=== PATIENT | female | born 1950 | race Caucasian/White ===

== ENCOUNTER 2018-07-09 13:20 | Inpatient (IN) | payer MEDICARE, OTHER ==
[~2018-07-09] VITALS: Ht 152.4 cm; Wt 52.4 kg
--- NOTE | ~2018-07-09 | HP ---
PATIENT: LETTY ROSALES MEDICAL RECORD: [id number] ACCOUNT: [id number] LOCATION:[address] : 46 ADMISSION DATE: 07/09/18 PCP: No PCP HISTORY AND PHYSICAL EXAMINATION HISTORY OF PRESENT ILLNESS: Ms. Rosales is a 68-year-old white female that is transferred from [facility] with worsening renal failure. She has a history of similar problem back in April where she developed acute renal failure. She was hospitalized at [facility] at that time and saw a production clerk and had a workup. She was sent home on some blood pressure medicines, but has not taken any. She states she does like to take medicine. She is a smoker and smokes a pack or more a day. She denies alcohol consumption. She recently had some upper respiratory symptoms and has been taking some Aleve and ibuprofen, which may be contributing. She has also had some nausea, vomiting and diarrhea. Her creatinine has been around 5. She was hospitalized in [place] 2 days ago and has failed to improve. She is transferred here for neurology services. PAST MEDICAL HISTORY: Significant for MS that was diagnosed in the mid s. It has been years since she has seen a production clerk. She has had a knee injury which required surgery. She has also had a foot fracture last year from a fall. PAST SURGICAL HISTORY: Includes knee surgery. ALLERGIES: INCLUDE HYDRALAZINE, WHICH CAUSES SPASMS OF HER BACK MUSCLES. MEDICATIONS: Home medications include Tylenol No. 4 and Provigil. FAMILY HISTORY: Mom at age 58 of an aneurysm. Dad at 82 of old age. SOCIAL HISTORY: She smokes a pack per day, does not drink. REVIEW OF SYSTEMS: She has had some recent upper respiratory symptoms. No fever. She has had nausea and vomiting and some diarrhea, some abdominal cramping associated with this. She denies any blood in her stools. She denies any difficulty with urinating. PHYSICAL EXAMINATION: GENERAL: She is alert and pleasant. She is in no distress at this time. HEENT: Head is normocephalic, sclerae nonicteric. NECK: Soft and supple. HEART: Regular with diminished breath sounds and a slight wheeze. ABDOMEN: Soft, no rebound, no guarding, no mass. EXTREMITIES: Lower extremities reveal no edema. NEUROLOGIC: Without any gross focal deficits. IMPRESSION: 1. Acute on apparently chronic renal failure. 2. Hypertension with noncompliance. 3. History of MS. 4. Tobacco use with probable chronic obstructive pulmonary disease. PLAN: Admit, IV fluids, check labs, get a renal ultrasound in a.m. Consult nephrology. Reviewed records from [facility], hospitalization back earlier in the year, records from [place] are pretty sparse, as all we have are copy of labs and a chest x-ray disc and an arterial Doppler. No H&P or discharge HISTORY AND PHYSICAL [id number] LETTY ROSALES summary is included with her records from [place]. TRANSINT:[id number] Voice Confirmation ID: [id number] DOCUMENT ID: [id number] KATIE RYAN DO at 2117 CC: [id number] DICTATION DATE: 07/09/18 1839 BROADCAST OPERATIONS TECHNICIAN: 07/09/182010 ADM IN [facility] [address] [place] [address]
[2018-07-09 21:12] VITALS: BP 158/68
[2018-07-10 00:20] VITALS: BP 157/76
[2018-07-10 04:56] LABS: BASOPHILS 0.1 % (0-2); EOSINOPHILS 0.9 % (0-7); HEMATOCRIT 38.4 % (36.0-48.0); HEMOGLOBIN 12.2 g/dL (12-16); IMMATURE GRANULOCYTES 1.5 % (0-5); MCH 29.5 pg (26.0-34.0); MCHC 31.8 g/dL (31.0-37.0); MCV 92.8 fL (80.0-100.0); MEAN PLATELET VOLUME 10.9 fL (7.4-10.4); MONOCYTES 6.7 % (2-11); NEUTROPHILS 73.8 % (40-80); PLATELET COUNT 201 10x3/uL (130-400); RBC 4.14 10x6/uL (4.00-5.40); WBC 7.9 10x3/uL (4.8-10.8)
[2018-07-10 05:44] VITALS: BP 149/65
[2018-07-10 06:07] LABS: ERYTHROCYTE SEDIMENTATION RATE 30 mm/hr (0-30)
[2018-07-10 07:09] LABS: ALBUMIN 2.6 g/dL (3.4-5.0); ANION GAP 20.4 mmol/L (8-16); BILIRUBIN - TOTAL 0.38 mg/dL (0.2-1.3); C-REACTIVE PROTEIN 2.3 mg/dL (0.0-0.9); CALCIUM 8.2 mg/dL (8.5-10.1); CARBON DIOXIDE 15.2 mmol/L (21.0-32.0); CREATININE - SERUM 6.1 mg/dL (0.6-1.3); MAGNESIUM - SERUM 1.9 mg/dL (1.8-2.4); PHOSPHOROUS 5.5 mg/dL (2.5-4.9); POTASSIUM - SERUM 4.6 mmol/L (3.5-5.1); PROTEIN - SERUM 6.8 g/dL (6.4-8.2); THYROID STIMULATING HORMONE 1.76 uIU/mL (0.36-3.74)
[2018-07-10 13:33] VITALS: BP 184/81
[2018-07-10 14:52] LABS: APPEARANCE CLOUDY (CLEAR); BILIRUBIN NEGATIVE (NEGATIVE); COLOR STRAW (YELLOW); GLUCOSE NEGATIVE (NEGATIVE); KETONE NEGATIVE (NEGATIVE); NITRITE NEGATIVE (NEGATIVE); PROTEIN TRACE mg/dL (NEGATIVE); UROBILINOGEN NORMAL (NORMAL)
[2018-07-10 14:54] LABS: BACTERIA MODERATE /hpf (NONE SEEN); EPITHELIAL CELLS 0-5 /hpf (0-5); WHITE CELLS - URINE 0-5 /hpf (0-5)
[2018-07-10 14:55] LABS: AMORPHOUS SEDIMENT <1+ /lpf (NONE SEEN)
[2018-07-10 16:28] VITALS: BP 147/87
[2018-07-10 18:42] LABS: PROTEIN - URINE 60.8 mg/dL (0.0-11.9)
[2018-07-10 20:46] VITALS: BP 183/78
[2018-07-11 05:52] VITALS: BP 161/82
[2018-07-11 05:53] LABS: BASOPHILS 0.3 % (0-2); EOSINOPHILS 2.3 % (0-7); HEMATOCRIT 32.9 % (36.0-48.0); HEMOGLOBIN 9.8 g/dL (12-16); IMMATURE GRANULOCYTES 1.1 % (0-5); LYMPHOCYTES 12.2 % (15-50); MCH 27.1 pg (26.0-34.0); MCHC 29.8 g/dL (31.0-37.0); MCV 90.9 fL (80.0-100.0); MONOCYTES 11.3 % (2-11); NEUTROPHILS 72.8 % (40-80); PLATELET COUNT 177 10x3/uL (130-400); RBC 3.62 10x6/uL (4.00-5.40); WBC 7.3 10x3/uL (4.8-10.8)
[2018-07-11 06:28] LABS: ALBUMIN 2.2 g/dL (3.4-5.0); BILIRUBIN - TOTAL 0.3 mg/dL (0.2-1.3); CALCIUM 7.7 mg/dL (8.5-10.1); CREATININE - SERUM 5.5 mg/dL (0.6-1.3); MAGNESIUM - SERUM 1.6 mg/dL (1.8-2.4)
[2018-07-11 06:29] LABS: ANION GAP 17.3 mmol/L (8-16); CARBON DIOXIDE 21.4 mmol/L (21.0-32.0); POTASSIUM - SERUM 3.7 mmol/L (3.5-5.1)
[2018-07-11 08:38] VITALS: BP 171/86
[2018-07-11 11:48] VITALS: BP 155/67
[2018-07-11 12:28] VITALS: Ht 152.4 cm; Wt 52.4 kg
[2018-07-11 15:56] VITALS: BP 168/69
[2018-07-11 17:33] LABS: % SATURATION 27 % (15-55); IRON 48 ug/dl (35-150); TOTAL IRON BIND CAPACITY 174 ug/dl (260-445); UNSAT IRON BIND CAPACITY 126 ug/dl (150-375)
[2018-07-11 21:53] VITALS: BP 152/78
[2018-07-12 05:28] LABS: BASOPHILS 0.1 % (0-2); EOSINOPHILS 3.4 % (0-7); HEMATOCRIT 35.5 % (36.0-48.0); IMMATURE GRANULOCYTES 0.9 % (0-5); LYMPHOCYTES 14.1 % (15-50); MCH 29.5 pg (26.0-34.0); MCHC 33.5 g/dL (31.0-37.0); MEAN PLATELET VOLUME 11.1 fL (7.4-10.4); MONOCYTES 12.1 % (2-11); NEUTROPHILS 69.4 % (40-80); RBC 4.03 10x6/uL (4.00-5.40); RDW 14.5 % (11.5-14.5); WBC 8.2 10x3/uL (4.8-10.8)
[2018-07-12 05:51] LABS: HEMOGLOBIN 11.9 g/dL (12-16); MCV 88.1 fL (80.0-100.0); PLATELET COUNT 238 10x3/uL (130-400)
[2018-07-12 06:32] LABS: ALBUMIN 2.2 g/dL (3.4-5.0); BILIRUBIN - TOTAL 0.32 mg/dL (0.2-1.3); CALCIUM 7.5 mg/dL (8.5-10.1); CREATININE - SERUM 4.3 mg/dL (0.6-1.3); MAGNESIUM - SERUM 1.6 mg/dL (1.8-2.4); PROTEIN - SERUM 6.1 g/dL (6.4-8.2)
[2018-07-12 06:46] LABS: ANION GAP 14.6 mmol/L (8-16); CARBON DIOXIDE 30.3 mmol/L (21.0-32.0)
[2018-07-12 06:48] LABS: POTASSIUM - SERUM 2.9 mmol/L (3.5-5.1)
[2018-07-12 06:56] VITALS: BP 164/77
[2018-07-12 09:03] VITALS: BP 161/87
[2018-07-12] MEDS ORDERED: TYLENOL #4 W/CO1 TAB PO (11:06)
[2018-07-12 11:13] VITALS: BP 176/84
[2018-07-12 12:16] LABS: ANA REFLEX - DIRECT Negative (Negative)
[2018-07-12 16:12] VITALS: BP 155/81
[2018-07-12 22:48] VITALS: BP 133/73
[2018-07-13 05:18] LABS: BASOPHILS 0 % (0-2); EOSINOPHILS 3.4 % (0-7); HEMATOCRIT 35.5 % (36.0-48.0); HEMOGLOBIN 11.8 g/dL (12-16); IMMATURE GRANULOCYTES 0.7 % (0-5); LYMPHOCYTES 17.2 % (15-50); MCH 29.5 pg (26.0-34.0); MCHC 33.2 g/dL (31.0-37.0); MCV 88.8 fL (80.0-100.0); MEAN PLATELET VOLUME 10.8 fL (7.4-10.4); MONOCYTES 15.4 % (2-11); NEUTROPHILS 63.3 % (40-80); PLATELET COUNT 258 10x3/uL (130-400); RDW 14.4 % (11.5-14.5); WBC 8.4 10x3/uL (4.8-10.8)
[2018-07-13 05:33] LABS: ALBUMIN 2.2 g/dL (3.4-5.0); ANION GAP 11.5 mmol/L (8-16); BILIRUBIN - TOTAL 0.19 mg/dL (0.2-1.3); CALCIUM 7.2 mg/dL (8.5-10.1); CARBON DIOXIDE 31.5 mmol/L (21.0-32.0); CREATININE - SERUM 2.6 mg/dL (0.6-1.3); MAGNESIUM - SERUM 1.6 mg/dL (1.8-2.4); PHOSPHOROUS 1.9 mg/dL (2.5-4.9); PROTEIN - SERUM 6.2 g/dL (6.4-8.2)
[2018-07-13 08:19] LABS: FOLATE (FOLIC ACID) - SERUM 6.3 ng/mL (>3.0)
[2018-07-13 09:00] VITALS: BP 155/70
[2018-07-13 12:12] VITALS: BP 136/89
[2018-07-13] MEDS ORDERED: MIRALAX17 GM PO (13:48)
[2018-07-13] MEDS ORDERED: NORVASC10 MG PO (13:48)
== END 2018-07-13 16:04 | disposition home or self-care (01) | DRG 683 ==
LOC: D.M2 13:20
PROVIDERS: Family Medicine; Internal Medicine; Internal Medicine Nephrology
DX: N17.9 Acute kidney failure, unspecified (principal); F17.213 Nicotine dependence, cigarettes, with withdrawal; E87.0 Hyperosmolality and hypernatremia; R18.8 Other ascites; N39.0 Urinary tract infection, site not specified; N14.1 Nephropathy induced by other drugs, medicaments and biological substances; I12.9 Hypertensive chronic kidney disease with stage 1 through stage 4 chronic kidney disease, or unspecified chronic kidney disease; N18.4 Chronic kidney disease, stage 4 (severe); Z91.19 Patient's noncompliance with other medical treatment and regimen; D63.8 Anemia in other chronic diseases classified elsewhere; E87.6 Hypokalemia; E83.42 Hypomagnesemia; J84.89 Other specified interstitial pulmonary diseases; G35 Multiple sclerosis; E86.0 Dehydration; J44.9 Chronic obstructive pulmonary disease, unspecified; T39.395A Adverse effect of other nonsteroidal anti-inflammatory drugs [NSAID], initial encounter